=== PATIENT | male | born 1950 | race Caucasian/White ===

== ENCOUNTER 2016-11-28 07:01 | Day surgery (SDC) | payer MEDICARE, BC ==
[2016-11-28] MEDS ORDERED: Lactated Ringers 1,000 ML IV SCH (07:30)
[2016-11-28] MEDS ORDERED: Midazolam 1 MG/ML 2 ML SDV ONE (07:36)
[2016-11-28] MEDS ORDERED: fentaNYL 100 MCG/2 ML SDV ONE (07:36)
[2016-11-28] MEDS ORDERED: Propofol 200 MG/20 ML SDV ONE (07:36)
[2016-11-28 10:03] VITALS: BP 126/92
--- NOTE | 2016-12-01 08:12 | OR ---
DATE OF PROCEDURE: 11/28/2016 PREOPERATIVE DIAGNOSIS: Colon cancer screening. POSTOPERATIVE DIAGNOSIS: Multiple colon polyps. PROCEDURE PERFORMED: Colonoscopy to the cecum with biopsy resection of polyps at 40 cm from the anal verge, transverse colon, two in the cecum, one at 10 cm and two at 5 cm from the anal verge. ANESTHESIA: IV anesthesia with monitored anesthesia care. INDICATION: This 65-year-old white male is referred for a colonoscopy for colon cancer screening. He says his last colonoscopic exam was done 17 years ago. I counseled him for the procedure including risks and alternatives, and he gave his informed consent to proceed. DESCRIPTION OF PROCEDURE: The patient was placed in the left lateral decubitus position. IV anesthesia was administered by the Anesthesia Service. Time-out was held. A rectal exam was performed, which was unremarkable. The flexible video Olympus colonoscope was introduced through his anus, up his rectum, and out of his colon all way to the cecum. En route, at 40 cm from anal verge, we saw a small polyp which was removed with the biopsy forceps. Another one in the transverse colon, which was small, was removed with the biopsy forceps. In the cecum, we saw two polyps which were small and removed with the biopsy forceps. The scope was then slowly withdrawn examining the mucosa throughout. At about 10 cm from the anal verge, we saw another small polyp, which was removed with the biopsy forceps. In the rectum at about 5 cm, we saw two polyps which were removed with the biopsy forceps. The polyps in the cecum and in the rectum were adjacent to each other , so were sent as one specimen from each area. The scope was retroflexed in the rectum with the distal rectum appearing unremarkable. The scope was straightened and removed. He tolerated the procedure well. Inder Esteban MD /[id number] [email or web address]
== END 2016-11-28 10:25 | disposition home or self-care (01) ==
LOC: JP.SDS 07:01
PROVIDERS: ATTEND Surgery
DX: Z12.11 Encounter for screening for malignant neoplasm of colon (principal); D12.0 Benign neoplasm of cecum; D12.3 Benign neoplasm of transverse colon; K63.5 Polyp of colon
CPT/HCPCS: 45380; J2250; J2704; J3010; J7120; 88305

== ENCOUNTER 2017-04-03 11:57 | Emergency (ER) | payer MEDICARE, BC ==
[2017-04-03] MEDS ORDERED: Sodium Chloride 0.9% 10 ML Syringe FLUSH PRN (12:09)
[2017-04-03] MEDS ORDERED: Famotidine 20 MG Tab PO ONE (12:09)
[2017-04-03] MEDS ORDERED: diphenhydrAMINE 25 MG Cap PO ONE (12:09)
[2017-04-03] MEDS ORDERED: Ondansetron 4 MG/2 ML SDV IVPUSH ONE (12:12)
--- NOTE | 2017-04-03 12:15 | EDM.PDOC ---
ED HPI GENERAL MEDICAL PROBLEM - General Chief Complaint: Allergic Reaction Stated Complaint: STUNG BY WASPS Time Seen by Provider: 04/03/17 12:00 Source of Information: Reports: Patient History Limitations: Reports: No Limitations - History of Present Illness INITIAL COMMENTS - FREE TEXT/NARRATIVE: 66 yo male with a remote hx of bee sting allergy, who has since had bee stings without a rxn, presents with hives after getting stung by hornets. Took diphenhyramine 50 mg po before arrival. Has also slight lip swelling and subtle chest tightness. Onset: Today Onset Date: 04/03/17 Duration: Minutes: Location: Reports: Generalized Quality: Reports: Other (itching) Improves with: Reports: None Worsens with: Reports: Other (bee sting) Context: Reports: Other (several hornet stings today.) Associated Symptoms: Reports: Nausea/Vomiting (onset in the ER), Rash (pruritic) . Denies: Fever/Chills, Loss of Appetite, Shortness of Breath Treatments YARN REWINDER: Reports: Other Medication(s) (diphenhydramine 50 mg po) Generalized Pain Score (Numeric/FACES): 6 - Related Data Allergies Allergy/AdvReac Type Severity Reaction Status Date / Time No Known Allergies Allergy Verified 04/03/17 12:17 Home Meds: Home Meds Cholecalciferol (Vitamin D3) [Vitamin D3] 1,000 unit PO DAILY 11/26/16 [History] Cyanocobalamin (Vitamin B-12) [Vitamin B-12] 1,000 mcg PO DAILY 11/26/16 [ History] Ginseng 100 mg PO DAILY 11/26/16 [History] Multivitamin with Minerals [Multiple Vitamin] 1 tab PO DAILY 11/26/16 [History] Zinc Amino Acid Chelate [Zinc Chelated] 50 mg PO DAILY 11/26/16 [History] EPINEPHrine [Epipen] 0.3 mg IM ASDIRECTED PRN #1 ml 04/03/17 [Rx] Prednisone [IJD: Prednisone] 20 mg PO BID #20 tab 04/03/17 [Rx] Past Medical History Musculoskeletal History: Reports: Fracture Neurological History: Reports: Concussion - Infectious Disease History Infectious Disease History: Reports: Chicken Pox, Measles, Mononucleosis, Mumps , Other (See Below) Other Infectious Disease History: lymes - Past Surgical History HEENT Surgical History: Reports: Oral Surgery, Tonsillectomy Musculoskeletal Surgical History: Reports: Other (See Below) Social & Family History - Tobacco Use Smoking Status *Q: Former Smoker Used Tobacco, but Quit: No Second Hand Smoke Exposure: No - Caffeine Use Caffeine Use: Reports: Coffee - Alcohol Use Days Per Week of Alcohol Use: 6 Number of Drinks Per Day: 1 Total Drinks Per Week: 6 - Recreational Drug Use Recreational Drug Use: No ED ROS ALLERGIC REACTION - Review of Systems Review Of Systems: See Below Constitutional: Denies: Fever, Chills, Diaphoresis HEENT: Reports: Other (minimal lip swelling) Respiratory: Reports: No Symptoms Cardiovascular: Reports: Other (mild chest tightness. ) GI/Abdominal: Reports: Nausea : Reports: No Symptoms Musculoskeletal: Reports: No Symptoms Skin: Reports: Erythema, Urticaria Neurological: Reports: No Symptoms ED EXAM GENERAL NO PERIP PULSE - Physical Exam Exam: See Below Exam Limited By: No Limitations General Appearance: Alert, WD/WN, No Apparent Distress Eye Exam: Bilateral Eye: Normal Inspection Ears: Normal External Exam, Normal Canal, Hearing Grossly Normal Nose: Normal Inspection, Normal Mucosa, No Blood Throat/Mouth: Normal Inspection, Normal Lips (minimal swelling), Normal Teeth, Normal Gums, Normal Oropharynx, Normal Voice, No Airway Compromise Head: Atraumatic, Normocephalic Neck: Normal Inspection, Supple, Non-Tender Respiratory/Chest: No Respiratory Distress, Lungs Clear, Normal Breath Sounds, No Accessory Muscle Use Cardiovascular: Regular Rate, Rhythm, No Edema GI/Abdominal: Soft Back Exam: Normal Inspection Extremities: Normal Inspection, Normal Range of Motion, Non-Tender, No Pedal Edema Neurological: Alert, Oriented, CN II-XII Intact, Normal Cognition, No Motor/ Sensory Deficits Psychiatric: Normal Affect, Normal Mood Skin Exam: Warm, Dry, Intact, Erythema, Rash (hives diffusely) Lymphatic: No Adenopathy Course - Vital Signs Text/Narrative:: saline lock, diphenhydramine 50 mg po, famotidine 40 mg po, Zofran 4 mg IV, prednisone 40 mg po-much better after these interventions. Last Recorded V/S: Last Vital Signs Temp 36.6 C 04/03/17 12:26 Pulse 73 04/03/17 13:27 Resp 13 04/03/17 13:27 BP 117/75 04/03/17 13:27 Pulse Ox 95 04/03/17 13:27 - Orders/Labs/Meds Orders: Active Orders 24 hr Category Date Time Status Sodium Chloride 0.9% [Saline Flush] Med 04/03/17 12:09 Active 10 ml FLUSH ASDIRECTED PRN Saline Lock Insert [OM.PC] Routine Oth 04/03/17 12:09 Ordered Medication Orders Sodium Chloride (Saline Flush) 10 ml FLUSH ASDIRECTED PRN PRN Reason: Keep Vein Open Meds: Medications Generic Name Dose Route Start Last Admin Trade Name Freq PRN Reason Stop Dose Admin Sodium Chloride 10 ml 04/03/17 12:09 Saline Flush FLUSH ASDIRECTED PRN Keep Vein Open Discontinued Medications Generic Name Dose Route Start Last Admin Trade Name Freq PRN Reason Stop Dose Admin Diphenhydramine HCl 50 mg 04/03/17 12:09 04/03/17 12:21 Benadryl PO 04/03/17 12:10 50 mg ONETIME ONE Administration Famotidine 40 mg 04/03/17 12:09 04/03/17 12:19 Pepcid PO 04/03/17 12:10 40 mg ONETIME ONE Administration Ondansetron HCl 4 mg 04/03/17 12:12 04/03/17 12:18 Zofran IVPUSH 04/03/17 12:13 4 mg ONETIME ONE Administration Prednisone 40 mg 04/03/17 12:18 04/03/17 13:13 Prednisone PO 04/03/17 12:19 40 mg ONETIME ONE Administration Departure - Departure Time of Disposition: 14:15 Disposition: Home, Self-Care 01 Condition: Fair Clinical Impression: Urticaria, Bee sting allergy - Discharge Information Prescriptions: EPINEPHrine [Epipen] 0.3 mg IM ASDIRECTED PRN #1 ml PRN Reason: Allergies Prednisone [IJD: Prednisone] 20 mg PO BID #20 tab Referrals: PCP,None [Primary Care Provider] - Forms: ED Department Discharge Additional Instructions: Take prednisone as directed until gone. Take diphenhydramine 50 mg up to 100 mg every 6 hrs as needed for hives/itching. Take famotidine 20 mg every 12 hrs as needed for hives. Return if worse. Take Epi Pen as needed for life threatening allergic reaction in the future if needed. - My Orders Last 24 Hours: My Active Orders 04/03/17 12:09 Sodium Chloride 0.9% [Saline Flush] 10 ml FLUSH ASDIRECTED PRN Saline Lock Insert [OM.PC] Routine - Assessment/Plan Last 24 Hours: My Active Orders 04/03/17 12:09 Sodium Chloride 0.9% [Saline Flush] 10 ml FLUSH ASDIRECTED PRN Saline Lock Insert [OM.PC] Routine
[2017-04-03] MEDS ORDERED: predniSONE 20 MG Tab PO ONE (12:18)
[2017-04-03 13:36] VITALS: BP 117/75
== END 2017-04-03 14:30 | disposition home or self-care (01) ==
LOC: JP.ED 11:57
DX: T63.441A Toxic effect of venom of bees, accidental (unintentional), initial encounter (principal); L50.9 Urticaria, unspecified; Z79.899 Other long term (current) drug therapy; Z87.891 Personal history of nicotine dependence
CPT/HCPCS: 96374; 99283; A9270; J2405

== ENCOUNTER 2020-03-09 06:30 | Day surgery (SDC) | payer MEDICARE, BC ==
[2020-03-09] MEDS ORDERED: Sodium Chloride 0.9% 1,000 ML IV SCH (07:00)
[2020-03-09] MEDS ORDERED: fentaNYL 100 MCG/2 ML SDV ONE (07:20)
[2020-03-09] MEDS ORDERED: Midazolam 1 MG/ML 2 ML SDV ONE (07:20)
[2020-03-09] MEDS ORDERED: Propofol 200 MG/20 ML SDV ONE (07:20)
[2020-03-09 08:52] VITALS: BP 140/92; PULSE 63
--- NOTE | 2020-03-09 12:21 | OR ---
DATE OF PROCEDURE: 03/09/2020 SURGEON: Steve Crain MD PROCEDURE: Colonoscopy. FINDINGS: 1. Ascending colon polyp, approximately 8 mm, completely removed using hot snare wire device. 2. Transverse colon polyp, approximately 5 mm, completely removed using cold biopsy forceps. 3. Rectal polyp, approximately 5 mm, completely removed using cold biopsy forceps device. COMPLICATIONS: None. CONSERVATION AGENT: None. ANESTHESIA: MAC. PREOPERATIVE DIAGNOSIS: History of colon polyps/screening colonoscopy. POSTOPERATIVE DIAGNOSIS: History of colon polyps/screening colonoscopy. RISKS: Risks, benefits, alternatives, and limitations including, but not limited to infection, bleeding, and perforation of abdominal structures were explained to the patient, who wished to proceed, along with false positives and false negatives. PROCEDURE IN DETAIL: The patient was placed in left lateral decubitus position. Digital rectal exam was performed without abnormality. Scope was introduced and advanced atraumatically to the ileocecal valve. Scope was brought back through the ascending, transverse, descending colon, and retroflexed. The aforementioned polyps were identified and completely removed as described above. No abnormal bleeding was noted after removal. No abnormalities on retroflexion. The patient tolerated the procedure well. Steve Crain MD /[id number]
== END 2020-03-09 09:03 | disposition home or self-care (01) ==
LOC: JP.SDS 06:30
PROVIDERS: ATTEND Surgery
DX: Z12.11 Encounter for screening for malignant neoplasm of colon (principal); D12.2 Benign neoplasm of ascending colon; D12.3 Benign neoplasm of transverse colon; K62.1 Rectal polyp; Z86.010 Personal history of colon polyps; Z98.890 Other specified postprocedural states
CPT/HCPCS: 45380; 45385; 88305; J2250; J2704; J3010; J7030

== ENCOUNTER 2023-04-09 07:05 | Day surgery (SDC) | payer MEDICARE, BC ==
[2023-04-09] MEDS ORDERED: Sodium Chloride 0.9% 1,000 ML IV SCH (07:15)
[2023-04-09] MEDS ORDERED: Propofol 200 MG/20 ML SDV ONE (07:19)
[2023-04-09] MEDS ORDERED: Midazolam 1 MG/ML 2 ML SDV ONE (07:19)
[2023-04-09] MEDS ORDERED: fentaNYL 50 MCG/ML SDV ONE (07:19)
[2023-04-09 09:48] VITALS: BP 137/94; PULSE 74
== END 2023-04-09 09:56 | disposition home or self-care (01) ==
LOC: JP.SDS 07:05
PROVIDERS: ATTEND Surgery
DX: Z12.11 Encounter for screening for malignant neoplasm of colon (principal); D12.0 Benign neoplasm of cecum
CPT/HCPCS: 45380; 88305; J2250; J2704; J3010; J7030